=== PATIENT | male | born 1995 | race Caucasian/White ===

== ENCOUNTER 2016-11-01 19:05 | Emergency (ER) | payer BC, OTHER ==
[2016-11-01 23:27] LABS: HEMOGLOBIN 16.5 gm/dl (14.0-17.5); RED BLOOD COUNT 5.43 M/UL (4.20-5.50); WHITE BLOOD COUNT 16.8 K/UL (4.5-11.0)
[2016-11-01 23:39] LABS: BUN/CREATININE RATIO 13 (0-10)
== END 2016-11-02 00:45 | disposition home or self-care (01) ==
LOC: ER1 19:05
PROVIDERS: Physician Assistant
DX: J02.0 Streptococcal pharyngitis (principal); F17.210 Nicotine dependence, cigarettes, uncomplicated
CPT/HCPCS: 36415; 71020; 80053; 81001; 85025; 87040; 87081; 87086; 87880; 93005; 96372; 99284; J0561